=== PATIENT | male | born 1965 | race Caucasian/White ===

== ENCOUNTER → 2016-11-22 | Outpatient (CLI) | payer MEDICARE ==
[~2016-11-22] MED LIST: ASPIR 8181 MG PO; BRILINTA90 MG PO; CRESTOR40 MG PO; HABITROL 21 MG P1 EA TD; IMDUR ER TAB 3030 MG PO; KLONOPIN TAB 00.5 MG PO; LASIX20 MG PO; LOPID600 MG PO; LORTAB 5-325 M1 EACH PO; LOTENSIN TAB 1010 MG PO; METOPROLOL TART25 MG PO; NITROSTAT 0.40.4 MG SL; PROTONIX40 MG PO; RANEXA500 MG PO; TOPROL XL 25 MG25 MG PO
== END ==
LOC: KOH-I 14:26
DX: M25.561 Pain in right knee (principal); M25.461 Effusion, right knee
CPT/HCPCS: 73562

== ENCOUNTER 2017-02-28 11:17 | Observation (INO) | payer MEDICARE ==
[~2017-02-28] VITALS: Ht 185.4 cm; Wt 153.3 kg
[~2017-02-28 11:17] MED LIST changes: -ASPIR 8181 MG PO; -BRILINTA90 MG PO; -CRESTOR40 MG PO; -HABITROL 21 MG P1 EA TD; -KLONOPIN TAB 00.5 MG PO; -LASIX20 MG PO; -LOPID600 MG PO; -LORTAB 5-325 M1 EACH PO; -LOTENSIN TAB 1010 MG PO; -METOPROLOL TART25 MG PO; -NITROSTAT 0.40.4 MG SL; -RANEXA500 MG PO; -TOPROL XL 25 MG25 MG PO
[2017-02-28 12:11] LABS: HEMOGLOBIN 15.4 gm/dl (14.0-17.5); RED BLOOD COUNT 4.98 M/UL (4.20-5.50)
[2017-02-28 12:45] LABS: BUN/CREATININE RATIO 17 (0-10)
[2017-02-28] MEDS ORDERED: TOPROL XL 25 MG25 MG PO (20:34)
[2017-02-28] MEDS ORDERED: ASPIR 8181 MG PO (20:35)
[2017-02-28] MEDS ORDERED: KLONOPIN TAB 00.5 MG PO (20:35)
[2017-02-28] MEDS ORDERED: LOTENSIN TAB 1010 MG PO (20:35)
[2017-02-28] MEDS ORDERED: LORTAB 5-325 M1 EACH PO (20:36)
[2017-02-28] MEDS ORDERED: BRILINTA90 MG PO (20:36)
[2017-03-01 06:32] LABS: HEMOGLOBIN 14.8 gm/dl (14.0-17.5); RED BLOOD COUNT 4.78 M/UL (4.20-5.50); WHITE BLOOD COUNT 5.7 K/UL (4.5-11.0)
[2017-03-01 06:39] LABS: BUN/CREATININE RATIO 17 (0-10)
[2017-03-02 12:26] LABS: BUN/CREATININE RATIO 17 (0-10)
[2017-03-03] MEDS ORDERED: LASIX20 MG PO (15:14)
[2017-03-03] MEDS ORDERED: HABITROL 21 MG P1 EA TD (15:16)
[2017-03-03] MEDS ORDERED: RANEXA500 MG PO (15:19)
[2017-03-03] MEDS ORDERED: LOPID600 MG PO (15:21)
[2017-03-03] MEDS ORDERED: CRESTOR40 MG PO (15:22)
== END 2017-03-03 16:05 | disposition home or self-care (01) ==
LOC: ER1 11:17 → MED SURG 4 14:10 → ZEROF 14:10 → MED SURG 4 18:14
PROVIDERS: Emergency Medicine; Physician Assistant Medical; ADMIT Internal Medicine
DX: I25.119 Atherosclerotic heart disease of native coronary artery with unspecified angina pectoris (principal); G47.33 Obstructive sleep apnea (adult) (pediatric); I10 Essential (primary) hypertension; E66.2 Morbid (severe) obesity with alveolar hypoventilation; R19.7 Diarrhea, unspecified; R06.00 Dyspnea, unspecified; E78.5 Hyperlipidemia, unspecified; R09.89 Other specified symptoms and signs involving the circulatory and respiratory systems; F17.210 Nicotine dependence, cigarettes, uncomplicated; Z68.41 Body mass index [BMI] 40.0-44.9, adult; Z88.1 Allergy status to other antibiotic agents; Z79.02 Long term (current) use of antithrombotics/antiplatelets; Z79.899 Other long term (current) drug therapy; Z95.5 Presence of coronary angioplasty implant and graft
CPT/HCPCS: ECHO; 36415; 71010; 78452; 80048; 80053; 80061; 81001; 82550; 82553; 83036; 83690; 83735; 83880; 84443; 84484; 85025; 85610; 85730; 93005; 93017; 93306; 94640; 94664; 96372; 96374; 96376; 99285; A9502; G0378; J1650; J1940; J2785

== ENCOUNTER 2021-06-17 15:08 | Emergency (ER) | payer MEDICARE ==
[~2021-06-17 15:08] MED LIST changes: +ASPIR 8181 MG PO; +BRILINTA90 MG PO; +BUSPAR 10MG10 MG PO; +CRESTOR40 MG PO; +FLONASE 0.05% N16 GM; +HABITROL 21 MG P1 EA TD; +KLONOPIN TAB 00.5 MG PO; +LASIX20 MG PO; +LOPID600 MG PO; +LORTAB 5-325 M1 EACH PO; +LOTENSIN TAB 1010 MG PO; +METOPROLOL TART25 MG PO; +NITROSTAT 0.40.4 MG SL; +NORVASC 5 MG TAB5 MG PO; +OMNICEF 300 MG300 MG PO; +PROVENTIL HFA6.7 GM INH; +RANEXA1000 MG PO; +RANEXA500 MG PO; +TESTOSTERO200 MG/1 M IM; +TOPROL XL 25 MG25 MG PO; +VOLTAREN100 GM TP
== END 2021-06-17 19:45 | disposition home or self-care (01) ==
LOC: ER1 15:08
DX: L02.212 Cutaneous abscess of back [any part, except buttock and flank] (principal); I10 Essential (primary) hypertension; E11.9 Type 2 diabetes mellitus without complications; Z88.8 Allergy status to other drugs, medicaments and biological substances
CPT/HCPCS: 99282

== ENCOUNTER 2021-08-01 10:48 | Emergency (ER) | payer MEDICARE ==
[2021-08-01] MEDS ORDERED: Voltaren Gel 1 % TOP (13:09)
[2021-08-01] MEDS ORDERED: IBU800 MG PO (13:17)
== END 2021-08-01 13:26 | disposition home or self-care (01) ==
LOC: ER1 10:48
DX: S83.92XA Sprain of unspecified site of left knee, initial encounter (principal); E11.9 Type 2 diabetes mellitus without complications; I11.9 Hypertensive heart disease without heart failure; E78.5 Hyperlipidemia, unspecified; Z95.1 Presence of aortocoronary bypass graft; Z88.8 Allergy status to other drugs, medicaments and biological substances; X50.1XXA Overexertion from prolonged static or awkward postures, initial encounter
CPT/HCPCS: 29505; 73564; 99283

== ENCOUNTER 2021-10-12 16:35 | Emergency (ER) | payer MEDICARE ==
[~2021-10-12 16:35] MED LIST changes: +IBU800 MG PO; +Voltaren Gel 1 % TOP
[2021-10-12 17:58] LABS: HEMOGLOBIN 15.8 gm/dl (14.0-17.5); RED BLOOD COUNT 4.9 M/UL (4.20-5.50); WHITE BLOOD COUNT 7.4 K/UL (4.5-11.0)
[2021-10-12 18:21] LABS: BUN/CREATININE RATIO 17 (0-10)
== END 2021-10-12 22:32 | disposition home or self-care (01) ==
LOC: ER1 16:35
PROVIDERS: Physician Assistant
DX: K43.9 Ventral hernia without obstruction or gangrene (principal); I11.9 Hypertensive heart disease without heart failure; E11.9 Type 2 diabetes mellitus without complications; F17.200 Nicotine dependence, unspecified, uncomplicated; Z95.1 Presence of aortocoronary bypass graft
CPT/HCPCS: 80053; 85025; 96374; 96375; 96376; 99284; J2270; J2405; Q9967